=== PATIENT | male | born 1960 | race Caucasian/White ===

== ENCOUNTER 2021-12-31 08:40 | Outpatient (CLI) | payer BC, SELFPAY ==
[2021-12-31 14:06] LABS: Chloride* 101 mmol/L (96-114)
[2021-12-31 14:07] LABS: Albumin* 4.9 g/dL (3.3-5.0); Sodium* 139 mmol/L (135-149)
[2021-12-31 14:08] LABS: Potassium* 4.8 mmol/L (3.6-5.1)
[2021-12-31 14:10] LABS: Alanine Aminotransferase* 56 U/L (4-50); Alkaline Phosphatase* 68 U/L (40-150); Aspartate Amino Transferase* 41 U/L (12-35); Bilirubin Total* 2.4 mg/dL (0.1-1.5); Blood Urea Nitrogen* 14 mg/dL (7-30); Carbon Dioxide* 27 mmol/L (20-32); Cholesterol* 178 mg/dL (90-199); Estimated Glomerular Filt Rate 85 ml/min; Total Protein* 7.8 g/dL (6.0-8.3)
[2021-12-31 14:11] LABS: Calcium* 9.8 mg/dL (8.4-10.6); Glucose* 95 mg/dL (60-115); HDL Cholesterol* 62 mg/dL (>=40); LDL Cholesterol Calculated 98 mg/dL (<100); Triglycerides* 90 mg/dL (40-149)
[2021-12-31 14:16] LABS: C Reactive Protein* < 0.5 mg/dL (0.5-1.0)
[2021-12-31 14:21] LABS: Creatinine Urine 168.3 mg/dL
[2021-12-31 14:25] LABS: Microalbumin Creatinine Ratio 0 mg/g (0-30); Microalbumin Urine < 1 mg/dL
[2022-01-01 09:08] LABS: Bilirubin Direct* 0.3 mg/dL (0.0-0.5); Gamma Glutamyl Transpeptidase* 117 U/L (8-55)
== END 2021-12-31 08:41 | disposition home or self-care (01) ==
PROVIDERS: PCP Family Medicine; Visit Provider Family Medicine
DX: Z00.00 Encounter for general adult medical examination without abnormal findings (principal); E78.5 Hyperlipidemia, unspecified; I10 Essential (primary) hypertension; R53.83 Other fatigue; Z13.1 Encounter for screening for diabetes mellitus; M06.9 Rheumatoid arthritis, unspecified
CPT/HCPCS: 80053; 80061; 82043; 82248; 82570; 82977; 84443; 86140

== ENCOUNTER 2022-04-30 17:00 | Outpatient (REF) | payer BC, SELFPAY ==
[2022-04-30 17:34] LABS: Basophils Percent Auto 0.9 % (0.0-3.0); Hematocrit 46.9 % (37.0-53.0); Hemoglobin* 15.2 gm/dL (13.5-17.5); Lymphocytes Percent Auto 36.5 % (20-44); Mean Corpuscular HGB Conc 32 gm/dL (32-36); Mean Corpuscular Hemoglobin 32 pg (26-34); Mean Corpuscular Volume 99 fL (80-100); Monocytes Percent Auto 8.3 % (0.0-11.0); Neutrophils Percent Auto 52.3 % (42.0-72.0); RDW Coefficient of Variation % 13.1 % (11.5-15.5); Red Blood Count 4.73 m/uL (4.30-5.90); White Blood Count* 4.46 K/uL (4.50-11.00)
[2022-04-30 17:43] LABS: Alanine Aminotransferase* 33 U/L (4-50); Aspartate Amino Transferase* 30 U/L (12-35); Creatinine* 1.2 mg/dL (0.5-1.5); Estimated Glomerular Filt Rate 68 ml/min
[2022-04-30 19:05] LABS: Platelet Count* 33 K/uL (140-440); Slide Review Reflex Yes
[2022-04-30 19:07] LABS: Slide Review Acceptable Review (Acceptable)
== END 2022-04-30 17:01 | disposition home or self-care (01) ==
LOC: LAB 17:00
PROVIDERS: PCP Family Medicine
DX: Z51.81 Encounter for therapeutic drug level monitoring (principal)
CPT/HCPCS: 36415; 82565; 84450; 84460; 85025

== ENCOUNTER 2022-09-02 13:42 | Outpatient (REF) | payer BC, SELFPAY ==
[2022-09-02 14:22] LABS: Basophils Absolute Auto 0.02 K/uL (0.00-0.30); Basophils Percent Auto 0.4 % (0.0-3.0); Eosinophils Absolute Auto 0.09 K/uL (0.00-0.50); Eosinophils Percent Auto 1.9 % (0.0-7.0); Hematocrit 45.1 % (37.0-53.0); Hemoglobin* 15.1 gm/dL (13.5-17.5); Lymphocytes Absolute Auto 1.65 K/uL (0.90-2.90); Mean Corpuscular HGB Conc 34 gm/dL (32-36); Mean Corpuscular Hemoglobin 32 pg (26-34); Mean Corpuscular Volume 96 fL (80-100); Monocytes Percent Auto 9.1 % (0.0-11.0); Neutrophils Absolute Auto 2.53 K/uL (1.7-7.0); Neutrophils Percent Auto 53.6 % (42.0-72.0); RDW Coefficient of Variation % 13.1 % (11.5-15.5); Red Blood Count 4.72 m/uL (4.30-5.90); White Blood Count* 4.72 K/uL (4.50-11.00)
[2022-09-02 14:26] LABS: Albumin* 4.6 g/dL (3.3-5.0)
[2022-09-02 14:29] LABS: Creatinine* 0.9 mg/dL (0.5-1.5); Estimated Glomerular Filt Rate 97 ml/min
[2022-09-02 14:30] LABS: Alanine Aminotransferase* 37 U/L (4-50); Aspartate Amino Transferase* 37 U/L (12-35)
[2022-09-02 14:35] LABS: C Reactive Protein* < 0.5 mg/dL (0.5-1.0)
[2022-09-02 15:18] LABS: Slide Review Reflex Yes
[2022-09-02 15:30] LABS: Erythrocyte SedimentationRate* < 2 mm/hr (2-15)
[2022-09-02 15:42] LABS: Slide Review Acceptable Review (Acceptable)
== END 2022-09-02 13:43 | disposition home or self-care (01) ==
LOC: NPINS 13:42
PROVIDERS: PCP Family Medicine; Visit Provider Internal Medicine Rheumatology
DX: Z51.81 Encounter for therapeutic drug level monitoring (principal)
CPT/HCPCS: 82040; 82565; 84450; 84460; 85025; 85651; 86140

== ENCOUNTER 2022-10-15 07:45 | Outpatient (CLI) | payer BC, SELFPAY | END 2022-10-15 07:46 | disposition home or self-care (01) | LOC: NFLDREF 18:26 | PROVIDERS: PCP Family Medicine; Referring Provider Family Medicine; Visit Provider Family Medicine | DX: E78.5 Hyperlipidemia, unspecified (principal); I10 Essential (primary) hypertension; K76.0 Fatty (change of) liver, not elsewhere classified; M10.9 Gout, unspecified | CPT/HCPCS: 80053; 80061; 82043; 82570; 82977 ==

== ENCOUNTER 2023-01-08 12:57 | Outpatient (REF) | payer BC, SELFPAY ==
[2023-01-08 13:09] LABS: Basophils Absolute Auto 0.03 K/uL (0.00-0.30); Basophils Percent Auto 0.6 % (0.0-3.0); Eosinophils Absolute Auto 0.13 K/uL (0.00-0.50); Eosinophils Percent Auto 2.8 % (0.0-7.0); Hematocrit 44.3 % (37.0-53.0); Hemoglobin* 15.1 gm/dL (13.5-17.5); Immature Granulocytes Abs Auto 0.02 K/uL (0.00-0.30); Immature Granulocytes Pct Auto 0.4 %; Lymphocytes Absolute Auto 1.65 K/uL (0.90-2.90); Mean Corpuscular HGB Conc 34 gm/dL (32-36); Mean Corpuscular Hemoglobin 33 pg (26-34); Mean Corpuscular Volume 96 fL (80-100); Neutrophils Absolute Auto 2.37 K/uL (1.7-7.0); Neutrophils Percent Auto 50.2 % (42.0-72.0); White Blood Count* 4.72 K/uL (4.50-11.00)
[2023-01-08 13:23] LABS: Slide Review Reflex No
[2023-01-08 13:27] LABS: Albumin* 4.7 g/dL (3.3-5.0)
[2023-01-08 13:30] LABS: Alanine Aminotransferase* 50 U/L (4-50); Aspartate Amino Transferase* 50 U/L (12-35); Estimated Glomerular Filt Rate 85 ml/min
[2023-01-08 13:46] LABS: C Reactive Protein* < 0.5 mg/dL (0.5-1.0)
[2023-01-08 13:48] LABS: Erythrocyte SedimentationRate* 2 mm/hr (2-15); Platelet Count* 155 K/uL (140-440)
== END 2023-01-08 12:58 | disposition home or self-care (01) ==
LOC: NPINS 12:57
PROVIDERS: PCP Family Medicine; Visit Provider Internal Medicine Rheumatology
DX: M06.9 Rheumatoid arthritis, unspecified (principal); Z79.899 Other long term (current) drug therapy
CPT/HCPCS: 82040; 82565; 84450; 84460; 85025; 85651; 86140

== ENCOUNTER 2023-03-18 08:17 | Outpatient (CLI) | payer BC, SELFPAY | END 2023-03-18 08:18 | disposition home or self-care (01) | PROVIDERS: PCP Family Medicine; Visit Provider Family Medicine | DX: Z00.00 Encounter for general adult medical examination without abnormal findings (principal); E78.5 Hyperlipidemia, unspecified; I10 Essential (primary) hypertension; M10.9 Gout, unspecified; Z11.59 Encounter for screening for other viral diseases; Z12.5 Encounter for screening for malignant neoplasm of prostate; N52.9 Male erectile dysfunction, unspecified; R35.0 Frequency of micturition | CPT/HCPCS: 80053; 80061; 82043; 82570; 84270; 84402; 84403; 84550; G0103 ==